=== PATIENT | female | born 1975 | race Two or more races ===

== ENCOUNTER 2024-06-07 10:49 | Outpatient (CLI) | payer OTHER ==
[~2024-06-07 10:49] MED LIST: SYNTHROID125 MCG
== END 2024-06-07 13:42 | disposition home or self-care (01) ==
LOC: TOM 10:49
PROVIDERS: ATTEND General Practice
DX: R10.32 Left lower quadrant pain (principal)

== ENCOUNTER 2024-06-20 14:31 | Outpatient (CLI) | payer OTHER | END 2024-06-20 14:32 | disposition home or self-care (01) | LOC: TOM 14:31 | PROVIDERS: ATTEND General Practice | DX: R91.8 Other nonspecific abnormal finding of lung field (principal); R91.1 Solitary pulmonary nodule ==